=== PATIENT | female | born 1960 | race Caucasian/White ===

== ENCOUNTER 2016-05-31 07:18 | Observation (INO) | payer BC ==
[~2016-05-31 07:18] MED LIST: Lactated Ringers 1,000 ML IV SCH; Lidocaine 1%/Sod Bicarbonate in NS 8.4% 1 ML Syringe IV PRN; Midazolam 1 MG/ML 2 ML SDV ONE; Propofol 200 MG/20 ML SDV ONE; Sodium Chloride 0.9% 10 ML Syringe FLUSH PRN; fentaNYL 250 MCG/5 ML SDV ONE
[2016-05-31] MEDS ORDERED: Lidocaine 1% 2 ML SDV ONE (07:30)
[2016-05-31] MEDS ORDERED: Rocuronium 50 MG/5 ML Vial ONE (07:30)
[2016-05-31] MEDS ORDERED: Dexamethasone 4 MG/ML 5 ML MDV ONE (07:33)
--- NOTE | 2016-05-31 07:50 | PCM.PREANE ---
<Jia Hyman - Last Filed: 05/31/16 08:14> Preanesthetic Assessment - PHYSICAL ASSESSMENT Vital Signs: Last Vital Signs Temp 98.3 C H 05/31/16 08:06 Pulse 71 05/31/16 08:06 Resp 16 05/31/16 08:06 BP 182/72 H 05/31/16 08:06 Pulse Ox 99 05/31/16 08:06 - LAB Values: Laboratory Last Values WBC 8.53 K/mm3 (3.98-10.04) 05/31/16 07:43 RBC 4.53 M/mm3 (3.98-5.22) 05/31/16 07:43 Hgb 13.3 gm/L (11.2-15.7) 05/31/16 07:43 Hct 40.5 % (34.1-44.9) 05/31/16 07:43 MCV 89.4 fl (79.4-94.8) 05/31/16 07:43 MCH 29.4 pg (25.6-32.2) 05/31/16 07:43 MCHC 32.8 g/dl (32.2-35.5) 05/31/16 07:43 RDW Std Deviation 44.1 fL (36.4-46.3) 05/31/16 07:43 Plt Count 344 K/mm3 (182-369) 05/31/16 07:43 MPV 9.0 fl (9.4-12.3) L 05/31/16 07:43 Neut % (Auto) 64.1 % (34.0-71.1) 05/31/16 07:43 Lymph % (Auto) 24.5 % (19.3-51.7) 05/31/16 07:43 Rock % (Auto) 9.8 % (4.7-12.5) 05/31/16 07:43 Eos % (Auto) 1.2 (0.7-5.8) 05/31/16 07:43 Baso % (Auto) 0.2 % (0.1-1.2) 05/31/16 07:43 Neut # 5.46 K/mm3 (1.56-6.13) 05/31/16 07:43 Lymph # 2.09 K/mm3 (1.18-3.74) 05/31/16 07:43 Rock # 0.84 K/mm3 (0.24-0.36) H 05/31/16 07:43 Eos # 0.10 K/mm3 (0.04-0.36) 05/31/16 07:43 Baso # 0.02 K/mm3 (0.01-0.08) 05/31/16 07:43 - ALLERGIES Allergies/Adverse Reactions: Allergies Allergy/AdvReac Type Severity Reaction Status Date / Time No Known Allergies Allergy Verified 05/30/16 13:21 PreAnesthesia Questionnaire Cardiovascular History: Reports: Hypertension (EKG 05-31-06 SR 67) INTERNAL AUDIT CONSULTANT History: Reports: None (pt refused test) - HOME MEDS Home Medications: Home Meds Calcium Lactate 500 mg PO QID 05/30/16 [History] Cholecalciferol (Vitamin D3) [Vitamin D3] 800 unit PO DAILY 05/30/16 [History] FLUoxetine [PROzac] 20 mg PO DAILY 05/30/16 [History] Gluc 2KCl/Chondr/Corine Hy/Hy Ac [Glucosamine & Chondroitin Cap] 1 cap PO BID [History] Hydrochlorothiazide 25 mg PO DAILY 05/30/16 [History] Losartan [Cozaar] 100 mg PO DAILY 05/30/16 [History] - CURRENT (IN HOUSE) MEDS Current Meds: Current Medications Lactated Ringer's (Ringers, Lactated) 1,000 mls @ 125 mls/hr IV ASDIRECTED DIANNA Stop: 05/31/16 23:00 Last Admin: 05/31/16 07:48 Dose: 125 mls/hr Lidocaine/Sodium Bicarbonate (Buffered Lidocaine 1% In Ns 8.4%) 0.25 ml IV ONETIME PRN PRN Reason: Prior to IV Start Stop: 05/31/16 18:00 Last Admin: 05/31/16 07:48 Dose: 0.25 ml Sodium Chloride (Saline Flush) 10 ml FLUSH ASDIRECTED PRN PRN Reason: Keep Vein Open Stop: 05/31/16 18:00 Discontinued Medications Bupivacaine HCl (Marcaine 0.5%) Confirm Administered Dose 30 ml .ROUTE .STK-MED ONE Stop: 05/31/16 08:01 Bupivacaine HCl/Epinephrine Bitart (Marcaine 0.5%/Epinephrine 1:200,000) Confirm Administered Dose 50 ml .ROUTE .ST-MED ONE Stop: 05/31/16 08:01 Dexamethasone (Dexamethasone) Confirm Administered Dose 20 mg .ROUTE .STK-MED ONE Stop: 05/31/16 07:34 Fentanyl (Sublimaze) Confirm Administered Dose 250 mcg .ROUTE .STK-MED ONE Stop: 05/31/16 07:13 Heparin Sodium (Porcine) (Heparin Sodium) Confirm Administered Dose 10,000 units .ROUTE .STK-MED ONE Stop: 05/31/16 08:00 Lidocaine HCl (Lidocaine 1%) Confirm Administered Dose 4 ml .ROUTE .STK-MED ONE Stop: 05/31/16 07:31 Lidocaine/Epinephrine (Xylocaine 1% With Epinephrine 1:100,000) Confirm Administered Dose 40 ml .ROUTE .STK-MED ONE Stop: 05/31/16 08:00 Methylene Blue (Methylene Blue 1%) Confirm Administered Dose 1 ml .ROUTE .ST- MED ONE Stop: 05/31/16 07:55 Midazolam HCl (Versed 1 Mg/Ml) Confirm Administered Dose 2 mg .ROUTE .ST-MED ONE Stop: 05/31/16 07:13 Propofol (Diprivan 20 Ml) Confirm Administered Dose 800 mg .ROUTE .STK-MED ONE Stop: 05/31/16 07:13 Rocuronium [place] (Zemuron) Confirm Administered Dose 50 mg .ROUTE .STK-MED ONE Stop: 05/31/16 07:31 Sodium Chloride (Normal Saline) Confirm Administered Dose 100 ml .ROUTE .[facility]- [facility] ONE Stop: 05/31/16 08:00 <Suzy Squires - Last Filed: 05/31/16 13:31> Preanesthetic Assessment - ANESTHESIA/TRANSFUSION/FAMILY HX Anesthesia/Transfusion History: No Prior Transfusion(s), Prior Anesthesia Family History of Anesthesia Reaction: No - REVIEW OF SYSTEMS Constitutional: Reports: no symptoms 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 Respiratory: Reports: no symptoms Cardiovascular: Reports: no symptoms GI: Reports: no symptoms Other: Reports: none - PHYSICAL ASSESSMENT HR: 71 O2 Sat by Pulse Oximetry: 99 RR: 16 BP: 182/72 Temp: 98.3 C Vital Signs: Last Vital Signs Temp 98.3 C H 05/31/16 08:06 Pulse 71 05/31/16 08:06 Resp 16 05/31/16 08:06 BP 182/72 H 05/31/16 08:06 Pulse Ox 99 05/31/16 08:06 Height: 1.63 m Weight: 65.317 kg NPO Status Date: 05/30/16 NPO Status Time: 20:00 ASA Class: 2 Mental Status: alert & oriented x3 Airway Class: Mallampati = 1 Dentition: Reports: normal dentition (chipped upper front tooth - right side ) Thyro-Mental Finger Breadths: 3 Mouth Opening Finger Breadths: 5 ROM/Head Extension: full Respiratory Status: lungs clear to auscultation bilaterally Cardiovascular Status: regular rate & rhythm, normal S1, S2, no murmur - LAB Values: Laboratory Last Values WBC 8.53 K/mm3 (3.98-10.04) 05/31/16 07:43 RBC 4.53 M/mm3 (3.98-5.22) 05/31/16 07:43 Hgb 13.3 gm/L (11.2-15.7) 05/31/16 07:43 Hct 40.5 % (34.1-44.9) 05/31/16 07:43 MCV 89.4 fl (79.4-94.8) 05/31/16 07:43 MCH 29.4 pg (25.6-32.2) 05/31/16 07:43 MCHC 32.8 g/dl (32.2-35.5) 05/31/16 07:43 RDW Std Deviation 44.1 fL (36.4-46.3) 05/31/16 07:43 Plt Count 344 K/mm3 (182-369) 05/31/16 07:43 MPV 9.0 fl (9.4-12.3) L 05/31/16 07:43 Neut % (Auto) 64.1 % (34.0-71.1) 05/31/16 07:43 Lymph % (Auto) 24.5 % (19.3-51.7) 05/31/16 07:43 Rock % (Auto) 9.8 % (4.7-12.5) 05/31/16 07:43 Eos % (Auto) 1.2 (0.7-5.8) 05/31/16 07:43 Baso % (Auto) 0.2 % (0.1-1.2) 05/31/16 07:43 Neut # 5.46 K/mm3 (1.56-6.13) 05/31/16 07:43 Lymph # 2.09 K/mm3 (1.18-3.74) 05/31/16 07:43 Rock # 0.84 K/mm3 (0.24-0.36) H 05/31/16 07:43 Eos # 0.10 K/mm3 (0.04-0.36) 05/31/16 07:43 Baso # 0.02 K/mm3 (0.01-0.08) 05/31/16 07:43 per h&p labs05/18/2016 hgb 13.4 plt 353 - BLOOD Blood Available: No - ANESTHESIA PLAN Preop Beta Broderick: No Anesthesia Type Planned: general anesthesia - ACKNOWLEDGEMENTS Pt an appropriate candidate for the planned anesthesia: Yes Alternatives and risks of anesthesia discussed w pt/guardian: Yes Pt/Guardian understands and agree with anesthesia plan: Yes PreAnesthesia Questionnaire Cardiovascular History: Reports: Hypertension Genitourinary History: Reports: Other (see below) Other Genitourinary History: cystocele INTERNAL AUDIT CONSULTANT History: Reports: Endometrial ablation : 4 Para: 3 Psychiatric History: Reports: Depression Oncologic (Cancer) History: Reports: Breast - Past Surgical History HEENT Surgical History: Reports: LASIK, Oral surgery, Tonsillectomy GI Surgical History: Reports: Colonoscopy Female Surgical History: Reports: Other (see below) Other Female Surgeries/Procedures: hysteroscopy with endometrial ablation Dermatological Surgical History: Reports: Other (see below) - SUBSTANCE USE Smoking Status *Q: Former Smoker Tobacco Use Within Last Twelve Months: No Days Per Week of Alcohol Use: 5 Number of Drinks Per Day: 2 Total Drinks Per Week: 10 Recreational Drug Use History: No
[2016-05-31] MEDS ORDERED: Sodium Chloride 0.9% 50 ML SDV ONE (07:59)
[2016-05-31] MEDS ORDERED: Heparin Sodium 5,000 Units/ML Vial ONE (07:59)
[2016-05-31] MEDS ORDERED: Lidocaine 1% with EPINEPHrine 1:100,000 20 ML MDV ONE (07:59)
[2016-05-31] MEDS ORDERED: Bupivacaine 0.5%/EPINEPHrine 1:200,000 50 ML MDV ONE (08:00)
[2016-05-31] MEDS ORDERED: Bupivacaine 0.5% 30 ML SDV ONE (08:00)
--- NOTE | 2016-05-31 09:07 | NM ---
[place] lymph node injection 1 mCi of technetium 99m sulfur colloid was given by Dr. Davis in the operating room for sentinel lymph node study. Impression: 1. Findings as noted above. Diagnostic code #1
[2016-05-31] MEDS ORDERED: diphenhydrAMINE 50 MG/ML SDV IVPUSH PRN (09:14)
[2016-05-31] MEDS ORDERED: Ondansetron 4 MG/2 ML SDV IVPUSH PRN ×2 (09:14→13:23)
[2016-05-31] MEDS ORDERED: fentaNYL 100 MCG/2 ML SDV ONE ×2 (09:24→10:23)
[2016-05-31] MEDS ORDERED: Lactated Ringers 1,000 ML ONE ×2 (09:36→12:27)
[2016-05-31] MEDS ORDERED: HYDROmorphone 1 MG/ML Syringe ONE (10:06)
[2016-05-31] MEDS ORDERED: fentaNYL 100 MCG/2 ML SDV IVPUSH PRN (10:15)
[2016-05-31] MEDS ORDERED: Meperidine PF 50 MG/ML Syringe IVPUSH PRN (10:15)
[2016-05-31] MEDS ORDERED: HYDROmorphone 0.5 MG/0.5 ML Syringe IVPUSH PRN (10:15)
[2016-05-31] MEDS ORDERED: Thrombin (Bovine) 5,000 Unit Kit ONE (11:32)
--- NOTE | 2016-05-31 12:55 | PCM.POSTAN ---
POST ANESTHESIA ASSESSMENT - MENTAL STATUS Mental Status: alert, oriented - VITAL SIGNS Pulse Rate: 102 SaO2: 100 Resp Rate: 19 Blood Pressure: 153/66 Temperature: 98.6 C - RESPIRATORY Respiratory Status: respiratory rate WNL, airway patent, O2 saturation stable - CARDIOVASCULAR CV Status: pulse rate WNL, blood pressure stable - GASTROINTESTINAL GI Status: no symptoms - PAIN Pain Score: 0 - POST OP HYDRATION Hydration Status: adequate & stable
[2016-05-31] MEDS ORDERED: Sodium Chloride 0.9% 10 ML Syringe FLUSH PRN (13:23)
[2016-05-31] MEDS ORDERED: Benzocaine/Cetylpyridinium/Menthol Lozenge MUCMEM PRN (13:23)
--- NOTE | 2016-05-31 13:23 | PCM.OPNOTE ---
- General Post-Op/Procedure Note Date of Surgery/Procedure: 05/31/16 Operative Procedure(s): 1. Right modified radical mastectomy. 2. Left prophylactic mastectomy. 3. Portacath placement. 4. Injection of blue dye and radioactive tracer. 5. Fluoroscopic guidance and interpretation Pre Op Diagnosis: Right breast invasive lobular carcinoma, Grade 2, ER/OK +, her2/reyna negative Post-Op Diagnosis: Right breast invasive lobular carcinoma, Grade 2, ER/OK +, her2/reyna negative WITH axillary lymph node metastasis Anesthesia Technique: General ET tube, Local Primary Surgeon: Jennifer Davis Anesthesia Provider: Jia Hyman Nephrology Social Worker: Chasity Crook Pathology: 1. Left breast 2. Additional inferior margin left breast 3. Right breast 4. Right sentinel nodes 5. Right axillary contents Fluid Replacement, Intraop: 2,000 EBL in mLs: 35 Surgical Drain/Tube Type: Aayush Helm Drain (x3 - R mastectomy flap, L mastectomy flap, Axillary drain) Complications: None Condition: Good Free Text/Narrative:: INDICATION FOR PROCEDURE: The patient is a 55-year-old woman who had been found to have a large right breast tumor on screening MRI due to high risk for breast cancer. Biopsy demonstrated this to be invasive lobular carcinoma, grade 2, ER/ OK positive, HER-2/reyna negative. Clinically the patient was node negative on MRI and CT imaging. Due to the size of the tumor and several satellite lesions within the right breast, she was not eligible for breast conservation therapy or neoadjuvant therapy. She is a patient of Dr. Ellington and Dr. Sarahi Santana. The patient had preoperative genetic testing which demonstrated her to be BRCA1 and BRCA2 negative. After extensively discussing surgical options in the office, the patient desired to proceed with right mastectomy with sentinel lymph node biopsy and possible axillary dissection as well as left contralateral prophylactic mastectomy, in addition to Port-A-Cath placement. Risks of the procedure were thoroughly reviewed with the patient and they found these risks acceptable and agreed to proceed. DESCRIPTION OF PROCEDURE: The patient was taken to the operating room and placed in the supine position. The arms were placed out-stretched. After induction of general endotracheal anesthesia, the right nipple areolar complex was cleansed and 1 mL of technetium 99 was injected into the dermis of the nipple areolar complex. This was followed with 1 mL of methylene blue diluted in 9 mL of saline. The bilateral chest was then prepped and draped in the usual sterile fashion. Sequential compression devices had been placed on the bilateral lower extremities. Preoperative antibiotics were administered as per protocol. Attention was first turned to the left breast. Local anesthetic was injected after first demarcating the planned area of incision. A 10 blade was then used to incise the skin in elliptical fashion. The skin and subcutaneous tissue was then retracted and using electrocautery and the handheld Harmonic Scalpel, a superficial flap was created extending superiorly to the clavicle and medially to the sternum. Inferiorly a flap was created to the inframammary fold and to the sternum medially. The breast tissue was then excised in its entirety off the pectoralis using the harmonic scalpel. The specimen was marked, long stitch laterally and short stitch superiorly, and passed off the field. There was a small amount of breast tissue that I felt had not been completely excised from the inferior aspect of the specimen. I did excise this small portion of tissue and sent it as a new inferior margin. The new inferior margin was marked with a silk suture. A 19 Cam[place]onian channel Silastic drain was then placed exiting in the infra-axillary space and secured using a 3-0 Ethilon suture. The drain was left coiled under the mastectomy flap. The dermis was then reapproximated using a running 3-0 Vicryl suture. The skin was then reapproximated using a running subcuticular 4-0 Monocryl suture. Attention was then turned to the right breast. Local anesthetic was injected after first demarcating the planned area of incision. A 10 blade was then used to incise the skin in elliptical fashion. The skin and subcutaneous tissue was then retracted and using electrocautery and the handheld Harmonic Scalpel, a superficial flap was created extending superiorly to the clavicle and medially to the sternum. Inferiorly a flap was created to the inframammary fold and to the sternum medially. The breast tissue was then excised in its entirety off the pectoralis using the harmonic scalpel. The specimen was marked, long stitch laterally and short stitch superiorly, and passed off the field. There was no gross evidence of invasion of the tumor into the chest wall. The sentinel node was easily visually identified and this was confirmed with the gamma probe. Two nodes appeared to be closely adherent and they both were taken with the Harmonic. The count of the sentinel node was 871. The background count using the gamma probe was 117. The sentinel nodes were also blue in coloration. While awaiting frozen section, a Port-A-Cath was placed on the patient's left. The patient was placed in slight Trendelenburg. After changing gloves and using an entirely separate set of instruments, a small incision was made over the left upper chest after injecting local anesthetic. The left arm was brought down to the patient's side. A 16-gauge needle was then used to access the left subclavian vein with return of nonpulsatile blood on the first attempt. A guidewire was passed without difficulty and its position was confirmed using fluoroscopy in the inferior vena cava. The needle was removed and the port pocket incision was made. A pocket was made directly over the chest wall fascia. A dilator was then advanced over the guidewire under direct fluoroscopic visualization. The inner cannula was removed as well as the wire. The catheter was advanced to the atriocaval junction and this was performed under fluoroscopy. The catheter was then trimmed and attached to the port. The port was then accessed and nonpulsatile blood was easily withdrawn. The port was then flushed with sterile saline. The port was secured in the pocket using 2-0 Prolene interrupted suture x3. The port was accessed once more and blood was aspirated and a total of 2 mL of 5000 units per mL heparin was instilled into the catheter for packing. 3-0 Vicryl suture was then used to reapproximate the deep subcutaneous tissue. 4-0 Monocryl was then used in running subcuticular fashion to reapproximate the skin. Frozen section returned that the sentinel nodes were positive in two out of three nodes received. Axillary lymph node dissection was then completed. The axillary lymph node basin was then removed using a harmonic scalpel, preserving the thoracodorsal neurovascular bundle, the long thoracic neurovascular bundle, and complete complete excision up to, and fully exposing, the axillary vein. Two 19 [place] channel Silastic drains were then placed exiting in the infra- axillary space, one trimmed to fit in the axillary space, and one under the mastectomy flap, they were secured using a 3-0 Ethilon suture. The dermis was then reapproximated using a running 3-0 Vicryl suture. The skin was then reapproximated using a running subcuticular 4-0 Monocryl suture. The wound was irrigated once more and inspected for hemostasis. The Dermabond Prineo system was then placed over the mastectomy flap incisions. Dermabond was applied over the Port-A-Cath site. The drains were labeled (L,R,A) and were placed to bulb suction. Kerlix fluffs were placed over the incision sites. A breast binder was applied. The patient was awakened from anesthesia and extubated and transferred to the recovery room in stable condition having tolerated the procedure well. Sponge and instrument counts reported as correct at the end of the case.
[2016-05-31] MEDS ORDERED: Propofol 200 MG/20 ML SDV ONE (14:19)
--- NOTE | 2016-05-31 14:43 | PCM48HPAN ---
Post Anesthesia Note - EVALUATION WITHIN 48HRS OF ANESTHETIC Vital Signs in Normal Range: Yes Patient Participated in Evaluation: Yes Respiratory Function Stable: Yes Airway Patent: Yes Cardiovascular Function Stable: Yes Hydration Status Stable: Yes Pain Control Satisfactory: Yes (pain rated 2-.5mg dilaudid given prior to DC from PACU) Nausea and Vomiting Control Satisfactory: Yes Mental Status Recovered: Yes
[2016-05-31] MEDS: ceFAZolin 1 GM in Premix Bag 1 BAG IV SCH ×2 (15:25→21:31)
[2016-05-31] MEDS: Losartan 100 MG Tab PO SCH (15:30)
[2016-05-31] MEDS: Hydrochlorothiazide 25 MG Tab PO SCH (15:30)
[2016-05-31] MEDS: Acetaminophen/oxyCODONE 325-5 MG Tab PO PRN ×2 (17:30→21:31)
[2016-05-31] MEDS: HYDROmorphone 0.5 MG/0.5 ML Syringe IVPUSH PRN (20:29)
[2016-06-01] MEDS ORDERED: Lidocaine 1% 50 ML MDV ONE (07:36)
[2016-06-01] MEDS: HYDROmorphone 0.5 MG/0.5 ML Syringe IVPUSH PRN (08:09)
[2016-06-01] MEDS: Acetaminophen/oxyCODONE 325-5 MG Tab PO PRN ×2 (08:09→11:00)
[2016-06-01] MEDS ORDERED: FLUoxetine 20 MG Cap PO SCH (09:00)
[2016-06-01] MEDS: Hydrochlorothiazide 25 MG Tab PO SCH (09:21)
[2016-06-01] MEDS: Losartan 100 MG Tab PO SCH (09:21)
[2016-06-01 09:24] VITALS: BP 162/124
--- NOTE | 2016-06-01 11:58 | CR ---
Chest: Two fluoroscopic spot views were obtained centered to the mid chest. Study performed utilizing C-arm device. Port-A-Cath catheter is seen entering from the left side. Tip lies near the right atrium and superior vena cava junction. Fluoroscopy time given as 54.4 seconds. Impression: 1. Tip of Port-A-Cath appears to lie near the right atrial and superior vena cava junction. Diagnostic code #2
--- NOTE | 2016-06-03 11:37 | PCM.DCSUM1 ---
Discharge Summary - Hospital Course Free Text/Narrative:: The patient is a 55-year-old woman with invasive lobular carcinoma of the right breast. I performed a right mastectomy with axillary lymph node dissection and left prophylactic mastectomy with Port-A-Cath placement on May 31. Unfortunately the patient's Port-A-Cath incision site opened overnight. I did remove her Port-A-Cath at the bedside today. Please see the additional procedure note. CBC this morning was unremarkable. The patient's pain is well controlled. She is otherwise stable for discharge home. We discussed her intraoperative positive lymph nodes once again. I went over with the patient and her family members postoperative care instructions. Her incisions otherwise are clean, dry, intact. She does have Dermabond Prineo over her mastectomy flaps. We discussed drain care. She will follow-up with me on June 06 for a drain check. She is to call for any questions or concerns. - Discharge Data Discharge Date: 06/01/16 Discharge Disposition: Home, Self-Care 01 Condition: Good - Patient Summary/Data Operative Procedure(s) Performed: 1. Right modified radical mastectomy. 2. Left prophylactic mastectomy. 3. Portacath placement. 4. Injection of blue dye and radioactive tracer. 5. Fluoroscopic guidance and interpretation Consults: Consultations 05/31/16 13:23 PT Evaluation and Treatment [CONS] Routine - Patient Instructions Diet: Regular Diet as Tolerated Activity: No Lifting Over 20 Pounds Driving: Do Not Drive (while on narcotics) Showering/Bathing: No Tub Bathing/Swimming (may sponge bathe ) Wound/Incision Care: Keep Operative Site/Wound Site Clean and Dry Notify Provider of: Fever, Increased Pain, Swelling and Redness, Drainage, Nausea and/or Vomiting - Discharge Plan Home Medications: Home Meds Calcium Lactate 500 mg PO QID 05/30/16 [History] Cholecalciferol (Vitamin D3) [Vitamin D3] 800 unit PO DAILY 05/30/16 [History] FLUoxetine [PROzac] 20 mg PO DAILY 05/30/16 [History] Gluc 2KCl/Chondr/Corine Hy/Hy Ac [Glucosamine & Chondroitin Cap] 1 cap PO BID [History] Hydrochlorothiazide 25 mg PO DAILY 05/30/16 [History] Losartan [Cozaar] 100 mg PO DAILY 05/30/16 [History] Acetaminophen/oxyCODONE [Percocet 325-5 MG] 1 - 2 tab PO Q4H PRN #60 tablet 05/19 [Rx] Docusate Sodium/Sennosides [Senna Plus] 2 tab PO BID PRN #0 tablet 06/01/16 [Rx] Ondansetron [Zofran ODT] 4 mg PO Q4H PRN 06/01/16 [History] Patient Handouts: Breast Cancer, Female, Exercises Following Breast Surgery, Total or Modified Radical Mastectomy, Partial Mastectomy With Axillary Lymph Node Dissection, Care After, Total or Modified Radical Mastectomy, Care After, Partial Mastectomy With Axillary Lymph Node Dissection Referrals: Jennifer Davis MD [Physician] - (06/[address] Davis ) Josephine Ellington MD [Ordering Only Provider] - (approximately 06/26, we will contact you with exact date and time. ) - Discharge Summary/Plan Comment DC Time >30 min.: Yes - General Info Date of Service: 06/01/16 - Review of Systems Systems Review Comment: Pain controlled. No concerns. Still feeling a little emotional. - Patient Data Vitals - Most Recent: Last Vital Signs Temp 99.1 F 06/01/16 04:00 Pulse 76 06/01/16 04:00 Resp 16 06/01/16 04:00 BP 162/124 H 06/01/16 09:21 Pulse Ox 99 06/01/16 04:00 Weight - Most Recent: 146 lb 6.4 oz I&O - Last 24 hours: Intake & Output 06/02/16 06/03/16 06/03/16 22:59 06:59 14:59 Intake Total 1999 Balance 1999 Med Orders - Current: Current Medications Discontinued Medications Benzocaine/Menthol (Cepacol Sore Throat) 1 lozenge MUCMEM Q1H PRN PRN Reason: Sore Throat Bupivacaine HCl (Marcaine 0.5%) Confirm Administered Dose 30 ml .ROUTE .STK-MED ONE Stop: 05/31/16 08:01 Bupivacaine HCl/Epinephrine Bitart (Marcaine 0.5%/Epinephrine 1:200,000) Confirm Administered Dose 50 ml .ROUTE .STK-MED ONE Stop: 05/31/16 08:01 Last Admin: 05/31/16 11:08 Dose: 17.5 ml Dexamethasone (Dexamethasone) Confirm Administered Dose 20 mg .ROUTE .STK-MED ONE Stop: 05/31/16 07:34 Diphenhydramine HCl (Benadryl) 25 mg IVPUSH Q6H PRN PRN Reason: pruritis Stop: 05/31/16 18:00 Fentanyl (Sublimaze) Confirm Administered Dose 250 mcg .ROUTE .STK-MED ONE Stop: 05/31/16 07:13 Fentanyl (Sublimaze) 50 mcg IVPUSH Q5M PRN PRN Reason: Pain Stop: 05/31/16 10:31 Fentanyl (Sublimaze) Confirm Administered Dose 100 mcg .ROUTE .STK-MED ONE Stop: 05/31/16 09:25 Fentanyl (Sublimaze) Confirm Administered Dose 100 mcg .ROUTE .STK-MED ONE Stop: 05/31/16 10:24 Fluoxetine HCl (Prozac) 20 mg PO DAILY [facility] Last Admin: 06/01/16 09:21 Dose: 20 mg Heparin Sodium (Porcine) (Heparin Sodium) Confirm Administered Dose 10,000 units .ROUTE .STK-MED ONE Stop: 05/31/16 08:00 Last Admin: 05/31/16 11:07 Dose: 10,000 units Hydrochlorothiazide (Hydrochlorothiazide) 25 mg PO DAILY [facility] Last Admin: 06/01/16 09:21 Dose: 25 mg Hydromorphone HCl (Dilaudid) 0.5 mg IVPUSH Q15M PRN PRN Reason: severe pain Stop: 05/31/16 10:31 Last Admin: 05/31/16 14:04 Dose: 0.5 mg Hydromorphone HCl (Dilaudid) Confirm Administered Dose 1 mg .ROUTE .STK-MED ONE Stop: 05/31/16 10:07 Hydromorphone HCl (Dilaudid) 0.5 mg IVPUSH Q1H PRN PRN Reason: Pain (severe 7-10) Last Admin: 06/01/16 08:09 Dose: 0.5 mg Lactated Ringer's (Ringers, Lactated) 1,000 mls @ 125 mls/hr IV ASDIRECTED [facility] Stop: 05/31/16 23:00 Last Admin: 05/31/16 07:48 Dose: 125 mls/hr Lactated Ringer's (Ringers, Lactated) Confirm Administered Dose 1,000 mls @ as directed .ROUTE .STK-MED ONE Stop: 05/31/16 09:37 Lactated Ringer's (Ringers, Lactated) Confirm Administered Dose 1,000 mls @ as directed .ROUTE .[facility] ONE Stop: 05/31/16 12:28 Cefazolin Sodium/Dextrose 1 gm (/ Premix) 50 mls @ 100 mls/hr IV Q8HR [facility] Stop: 05/31/16 22:29 Last Admin: 05/31/16 21:31 Dose: 100 mls/hr Lidocaine HCl (Lidocaine 1%) Confirm Administered Dose 4 ml .ROUTE .ST-MED ONE Stop: 05/31/16 07:31 Lidocaine HCl (Xylocaine 1%) Confirm Administered Dose 50 ml .ROUTE .[facility] ONE Stop: 06/01/16 07:37 Last Admin: 06/01/16 09:24 Dose: Not Given Lidocaine/Epinephrine (Xylocaine 1% With Epinephrine 1:100,000) Confirm Administered Dose 40 ml .ROUTE .[facility] ONE Stop: 05/31/16 08:00 Last Admin: 05/31/16 11:08 Dose: 17.5 ml Lidocaine/Sodium Bicarbonate (Buffered Lidocaine 1% In Ns 8.4%) 0.25 ml IV ONETIME PRN PRN Reason: Prior to IV Start Stop: 05/31/16 18:00 Last Admin: 05/31/16 07:48 Dose: 0.25 ml Losartan Potassium (Cozaar) 100 mg PO DAILY [facility] Last Admin: 06/01/16 09:21 Dose: 100 mg Meperidine HCl (Demerol) 12.5 mg IVPUSH ASDIRECTED PRN PRN Reason: Shivering Stop: 06/01/16 10:16 Methylene Blue (Methylene Blue 1%) Confirm Administered Dose 1 ml .ROUTE .[facility]- MED ONE Stop: 05/31/16 07:55 Last Admin: 05/31/16 08:38 Dose: 1 ml Midazolam HCl (Versed 1 Mg/Ml) Confirm Administered Dose 2 mg .ROUTE .ST-MED ONE Stop: 05/31/16 07:13 Ondansetron HCl (Zofran) 4 mg IVPUSH ONETIME PRN PRN Reason: Nausea/Vomiting Stop: 05/31/16 18:00 Ondansetron HCl (Zofran) 4 mg IVPUSH Q6H PRN PRN Reason: Nausea/Vomiting Oxycodone/Acetaminophen (Percocet 325-5 Mg) 1 tab PO Q4H PRN PRN Reason: Pain (moderate 4-6) Last Admin: 06/01/16 11:00 Dose: 1 tab Propofol (Diprivan 20 Ml) Confirm Administered Dose 800 mg .ROUTE .STK-MED ONE Stop: 05/31/16 07:13 Propofol (Diprivan 20 Ml) Confirm Administered Dose 200 mg .ROUTE .STK-MED ONE Stop: 05/31/16 14:20 Rocuronium Lowell (Zemuron) Confirm Administered Dose 50 mg .ROUTE .STK-MED ONE Stop: 05/31/16 07:31 Senna/Docusate Sodium (Senna Plus) 2 tab PO BID PRN PRN Reason: Constipation Sodium Chloride (Saline Flush) 10 ml FLUSH ASDIRECTED PRN PRN Reason: Keep Vein Open Stop: 05/31/16 18:00 Sodium Chloride (Normal Saline) Confirm Administered Dose 100 ml .ROUTE .STK- MED ONE Stop: 05/31/16 08:00 Last Admin: 05/31/16 11:15 Dose: 59 ml Sodium Chloride (Saline Flush) 10 ml FLUSH ASDIRECTED PRN PRN Reason: Keep Vein Open Thrombin (Thrombin-Jmi) Confirm Administered Dose 5,000 unit .ROUTE .STK-MED ONE Stop: 05/31/16 11:33 Last Admin: 05/31/16 12:00 Dose: 5,000 unit - Exam General: Reports: alert, oriented, cooperative, no acute distress Lungs: Reports: Clear to auscultation, Normal respiratory effort Cardiovascular: Reports: regular rate, regular rhythm Abdomen: Reports: soft, no tenderness, no distension Skin: Reports: warm, dry, intact Wound/Incisions: Reports: other (mastectomy flaps healing well, drains with hemoserous output, Port-A-Cath incision open ) Neurological: Reports: no new focal deficit Psy/Mental Status: Reports: alert, normal affect, normal mood *Q Meaningful Use (DIS) - VTE *Q VTE Criteria *Q: - Stroke *Q Stroke Criteria *Q: - AMI *Q AMI Criteria *Q: - Free Text/Narrative Note: PROCEDURE NOTE: Port-A-Cath Removal Indication: Port-A-Cath incision site open, exposing Port-A-Cath The risks (including bleeding and infection) and benefits of the procedure were discussed and written informed consent obtained. Local anesthesia was performed with Lidocaine 1% with epinephrine with added sodium bicarbonate (total 10mL), the left upper chest was prepped with Betadine , and draped in the usual sterile fashion. The remainder of the closed incision was opened using a scalpel. The port was then dissected from the surrounding tissues and the Prolene sutures holding the port in place were cut and excised. The port was then removed without difficulty in one piece. Pressure was held at the subcutaneous tunnel. A 3-0 Vicryl suture was placed in a [id number] closing the subcutaneous tunnel. The wound was then loosely approximated using interrupted 3-0 Nylon sutures. Gauze applied as dressing.
== END 2016-06-01 11:24 | disposition home or self-care (01) ==
LOC: JD.SDS 07:18 → INTOOBSV 13:23 → JD.MS 13:23
PROVIDERS: ADMIT Surgery; ATTEND Surgery
PROC: 0HTV0ZZ Resection of Bilateral Breast, Open Approach (ICD-10-PCS; principal; 2016-05-31)
PROC: 0HBT0ZZ Excision of Right Breast, Open Approach (ICD-10-PCS; 2016-05-31)
PROC: 0HBU0ZZ Excision of Left Breast, Open Approach (ICD-10-PCS; 2016-05-31)
PROC: 07B60ZX Excision of Left Axillary Lymphatic, Open Approach, Diagnostic (ICD-10-PCS; 2016-05-31)
PROC: 06H033Z Insertion of Infusion Device into Inferior Vena Cava, Percutaneous Approach (ICD-10-PCS; 2016-05-31)
PROC: B519ZZA Fluoroscopy of Inferior Vena Cava, Guidance (ICD-10-PCS; 2016-05-31)
DX: C50.911 Malignant neoplasm of unspecified site of right female breast (principal); Z17.0 Estrogen receptor positive status [ER+]; I10 Essential (primary) hypertension; F32.9 Major depressive disorder, single episode, unspecified; Z87.891 Personal history of nicotine dependence
CPT/HCPCS: 19307; 36415; 36561; 38792; 77001; 80048; 85025; 88305; 88307; 88331; 88332; 93005; 97110; 97161; 97535; A9270; A9541; C1788; J0690; J1100; J1170; J1644; J2250; J3010; J7120; Q9968; 00404; J2704